=== PATIENT | female | born 1950 | race Caucasian/White ===

== ENCOUNTER → 2024-07-05 11:40 | Outpatient (REF) | payer MEDICARE, OTHER, SELFPAY | LOC: WDC 11:40 | PROVIDERS: ATTENDING PHYSICIAN Nurse Practitioner Family | DX: Z12.31 Encounter for screening mammogram for malignant neoplasm of breast (principal) | CPT/HCPCS: 77063; 77067 ==

== ENCOUNTER → 2024-07-20 09:15 | Outpatient (REF) | payer MEDICARE, OTHER, SELFPAY | LOC: RAD 09:15 | PROVIDERS: ATTENDING PHYSICIAN Nurse Practitioner Family | DX: Z13.820 Encounter for screening for osteoporosis (principal); Z78.0 Asymptomatic menopausal state | CPT/HCPCS: 77080 ==

== ENCOUNTER 2024-11-10 06:55 | Inpatient (IN) | payer MEDICARE, OTHER, SELFPAY ==
[2024-10-18 13:11] VITALS: BMI 30.8
[2024-10-18 14:17] LABS: Hematocrit 41.4 % (37.0-47.0); Hemoglobin 13.5 g/dL (12.0-16.0); Mean Corp Hgb Conc. 32.6 g/dL (33.0-37.0); Mean Corpuscular Hgb 29.6 pg (27.0-31.0); Mean Corpuscular Volume 90.8 fL (81.0-99.0); Mean Platelet Volume 10.2 fL (7.4-10.4); Platelet Count 281 10^3/uL (130-400); Red Blood Cell Count 4.56 10^6/uL (4.20-5.40); Red Cell Dist. Width 14.3 % (11.5-14.5); White Blood Cell Count 8.5 10^3/uL (4.8-10.8)
[2024-10-18 14:42] LABS: ALT (SGPT) 15 U/L (0-35); AST (SGOT) 23 U/L (14-36); Albumin 4.1 g/dl (3.5-5.0); Alkaline Phosphatase 68 U/L (38-126); Blood Urea Nitrogen 31 mg/dl (7-17); Calcium 9.6 mg/dl (8.4-10.2); Carbon Dioxide 28 mmol/L (22-30); Chloride 102 mmol/L (98-107); Estimated Creatinine Clearance 96 ml/min; Glucose 83 mg/dl (70-99); Potassium 4.1 mmol/L (3.5-5.1); Sodium 139 mmol/L (135-145); Total Bilirubin 0.6 mg/dl (0.2-1.3); Total Protein 6.1 g/dl (6.3-8.2); eGFR > 60.00
[2024-10-19 08:43] LABS: Glycohemoglobin (HgbA1c) 5.6 % (4.0-5.6)
--- NOTE | 2024-11-03 15:20 | PTCARENOTE ---
Patient anxious and tearful during nursing assessment. Patient is very concerned about inability to return home at discharge due to spouse's level of care. Patient's spouse is 'total care' his children are coming from out of town to take care of
him. Spouse has refused respite care.
Patient is requesting rehab for 2 weeks and has discussed with [facility] ([facility] [phone]).
Patient understands that rehab arrangements cannot be made ahead of time, rehab is based on insurance coverage and bed availability.
Patient stated she is willing to private pay if necessary.
Patient is aware that case management will meet with her once admitted to hospital.
[2024-11-10] VITALS (18 sets, daily range): BP systolic 88–138; BP diastolic 36–66; PULSE 78; BMI 30.8
[2024-11-10] MEDS: CELEBREX 200 MG PO (07:14)
[2024-11-10] MEDS: TYLENOL 650 MG PO ×3 (07:15→22:22)
[2024-11-10] MEDS: NORMOSOL-R/PLASMALYTE-A 1000 IV ×2 (07:15→14:16)
[2024-11-10 07:22] LABS: Glucose - Point of Care 97 mg/dl (70-99)
--- NOTE | 2024-11-10 07:52 | W.PN.UPDATE ---
Update Note
Progress Note Update
L knee OA s/p L TKA w/ Dr Beck 11/10/24
- s/p R TKA, 2017, w/ Dr Beck
DVT prophylaxis - ASA, b/l venous foot pumps
HTN - diet controlled - monitor BP
NIDDM, A1c 5.6 - monitor BS
- + SSI
- Diabetic carb controlled diet
- Resume Ozempic once d/c
- Would benefit from Cefadroxil upon d/c
HLD
Venous insufficiency
Colon and gallbladder polyps
Fatty liver disease
Cervical radiculopathy
DDD w/ stenosis
Melanoma
Anxiety
Depression
Osteopenia
Vitamin D deficiency
Obesity, BMI 30.8
[2024-11-10 09:49] LABS: Glucose - Point of Care 115 mg/dl (70-99)
[2024-11-10] MEDS: ROXICODONE 5 MG PO ×2 (12:01→18:16)
[2024-11-10 12:06] LABS: Glucose - Point of Care 148 mg/dl (70-99)
[2024-11-10] MEDS: TYLENOL PO ×2 (14:12)
[2024-11-10] MEDS: LEXAPRO 15 MG PO (14:30)
[2024-11-10] MEDS: COMPAZINE 5 MG PO (14:31)
[2024-11-10] MEDS: DILAUDID 0.5 MG IV (14:31)
[2024-11-10] MEDS: TORADOL 10 MG IV (15:18)
[2024-11-10] MEDS: NOVOLOG FLEXPEN-MODERATE RESISTANCE SC (15:18)
--- NOTE | 2024-11-10 15:58 | CM ---
Met with pt at bedside
Pt reports she lives with he in a 1 story home (55+); no steps to enter
Independent, active, drives
DME - rolling walker, single point cane, raised toilet seat, CPAP in home
HH - [facility] in past
SNF - has been in past - unable to recall
PCP - Myesha Ackerman
Pharm - [facility]
PT/OT recs SNF
May qualify for [facility] program. Has tele med appt in AM with PCP
Requesting referral be sent to [facility] - sent in [facility]. Adeline aware
Plan - anticipate SNF when medically ready
[2024-11-10 18:04] LABS: Glucose - Point of Care 213 mg/dl (70-99)
[2024-11-10] MEDS: ANCEF 5 IV (18:04)
[2024-11-10] MEDS: ASPIRIN 325 MG PO (18:04)
--- NOTE | 2024-11-10 18:38 | PTCARENOTE ---
Pt arrived to floor from PACU. AAOx3. Pt stating full sensation on LLE neurovascular assessment. Pt stating pain comfortably controlled. Assist x1 with rolling walker to BSC. Successful urination, returned to bed. SaO2 96% on room air. Regular
rhythm. Trace anasarca. Pedal pulses palpable. Bowel sounds present. No bowel movement observed. Pt state last bowel movement was this morning.
[2024-11-10] MEDS: NOVOLOG FLEXPEN-MODERATE RESISTANCE 3 UNITS SC (19:13)
[2024-11-10 22:16] LABS: Glucose - Point of Care 234 mg/dl (70-99)
[2024-11-10] MEDS: COLACE 100 MG PO (22:22)
[2024-11-10] MEDS: BACTROBAN 2% OINTMENT 1 APPLIC NASAL (22:22)
[2024-11-10] MEDS: SENOKOT 17.2 MG PO (22:22)
[2024-11-10] MEDS: LIPITOR 20 MG PO (22:34)
[2024-11-11] MEDS: TYLENOL PO (00:22)
[2024-11-11] MEDS: ANCEF 5 IV (00:22)
[2024-11-11] MEDS: TYLENOL 650 MG PO ×3 (03:17→12:37)
[2024-11-11 03:21] VITALS: BP 116/49
[2024-11-11 07:50] VITALS: BP 132/55
[2024-11-11] MEDS: COMPAZINE 5 MG IV (08:15)
[2024-11-11] MEDS: ROXICODONE 5 MG PO (08:16)
[2024-11-11] MEDS: CELEBREX 200 MG PO (08:17)
[2024-11-11] MEDS: VITAMIN D3 (cholecalciferol) 25 MCG PO (08:17)
[2024-11-11] MEDS: ASPIRIN 325 MG PO (08:17)
[2024-11-11] MEDS: LEXAPRO 15 MG PO (08:17)
[2024-11-11] MEDS: COLACE 100 MG PO (08:18)
[2024-11-11] MEDS: BACTROBAN 2% OINTMENT 1 APPLIC NASAL (08:18)
[2024-11-11] MEDS: SENOKOT 17.2 MG PO (08:18)
[2024-11-11 08:30] LABS: Glucose - Point of Care 134 mg/dl (70-99)
[2024-11-11] MEDS: NOVOLOG FLEXPEN-MODERATE RESISTANCE SC (08:31)
[2024-11-11 08:35] VITALS: BP 122/53; BP 131/58; BP 132/55; PULSE 58; PULSE 59; O2SAT 98
--- NOTE | 2024-11-11 10:11 | W.PN.ORTHO ---
Today's Communication / Plan
-
D/c possible for later today pending bed availability.
Assessment
.
Distal Motor Intact: Yes
Dressing:
Clean, dry and intact.
Assessment:
L knee OA s/p L TKA w/ Dr Beck 11/10/24
- s/p R TKA, 2017, w/ Dr Beck
DVT prophylaxis - ASA, b/l venous foot pumps
Post-op nausea - Compazine TID
- Add daily PPI
- Minimize opioids as able
HTN - diet controlled - BPs overall stable
NIDDM, A1c 5.6 - BS readings initially elevated 2* IV steroids in OR, surgical stress, and holding of home Ozempic 1 week prior to surgery
- BS readings improving, however, w/ SSI prn and diabetic carb controlled diet
- Resume Ozempic once d/c
- Would benefit from Cefadroxil upon d/c
HLD
Venous insufficiency
Colon and gallbladder polyps
Fatty liver disease
Cervical radiculopathy
DDD w/ stenosis
Melanoma
Anxiety
Depression
Osteopenia
Vitamin D deficiency
Obesity, BMI 30.8
Plan
.
Surgery / Date: L TKA w/ Dr Beck 11/10/24
DVT Prophylaxis: Aspirin
Activity:
Out of bed.
PT/OT
Discharge Plan: SNF
Subjective
.
.:
Patient resting comfortably in her chair this AM.
L knee pain better w/ mobility. Happy with her current pain meds.
Nausea without vomiting. Nausea, fortunately, not limiting patient.
Eager for possible d/c later today.
Vital Signs and Labs
.
Vital Signs and Labs:
Lab Results
10/18/24 12:31
10/18/24 12:31
Temp Pulse Resp BP Pulse Ox
98.2 F 58 18 132/55 98
11/11/24 07:50 11/11/24 07:50 11/11/24 07:50 11/11/24 07:50 11/11/24 07:50
Non-invasive Hgb result: 10.7
Physical Exam
-
HEENT: No pallor, cyanosis, or jaundice. Throat clear.
NECK: Supple. No JVD.
RESPIRATORY: Lungs clear to auscultation.
CVS: S1, S2 normal. RRR.�
ABDOMEN: Soft, non-tender. No distension. Obese.
EXTREMITIES: Strength equal, no calf pain with palpation/dorsiflexion. Calves soft.
COMMUNICATIONS CONTROLLER: AOx3. No focal deficits. 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
[2024-11-11] MEDS: NSS (PRESERVATIVE FREE) 10 ML IV (10:44)
[2024-11-11] MEDS: PROTONIX IV 40 MG IV (10:45)
--- NOTE | 2024-11-11 10:51 | CM ---
Addendum entered by Mary Herrmann 11/11/24 13:30:
Spoke with [place] - waiver approved and sent to [facility]
Spoke with Adeline at [facility] - can accept; confirmed receipt of waiver
Spoke with pt and family members in room - updated. Family to transport
Reviewed IMM
Plan - transfer to [facility]; family to transport
R - [phone]
F - [phone]
Original Note:
Spoke wit pt - completed telemed appt with PCP - [place] from [facility] updated. Will submit clinicals for waiver program when received
Called Adeline at the [facility] - LM requesting return call
Plan - snf when bed and waiver confirmed and medically ready
[2024-11-11 11:25] VITALS: BP 134/74
[2024-11-11 12:04] VITALS: BP 127/56; BP 133/62; PULSE 61; O2SAT 98
[2024-11-11 12:32] LABS: Glucose - Point of Care 212 mg/dl (70-99)
[2024-11-11] MEDS: NOVOLOG FLEXPEN-MODERATE RESISTANCE 3 UNITS SC (12:39)
--- NOTE | 2024-11-11 12:58 | W.DS.TRANS ---
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
-
Discharge Instructions:
Sleep Apnea Risk Intermediate
Discharge Diagnosis/Procedures L knee OA s/p L TKA w/ Dr Beck 11/10/24
Diet Diabetic, Carb Controlled
Activity As tolerated,With Walker
Driving Restrictions Not until seen by your Dr
Bathing Restrictions OK to Shower
Other Services PT,OT
Wound Care Dressing to be removed 1 week post-surgery.
Instructions:
Stand-Alone Forms: Total Hip/Knee Replacement D/C
Changes to Home Medications: Yes
Discharge Medications:
DC Medications w/original date entered in [facility]
atorvastatin 20 mg tablet 20 mg PO MOWEFR 06/24/17
escitalopram oxalate 10 mg tablet 15 mg PO DAILY 06/24/17
cholecalciferol (vitamin D3) 25 mcg (1,000 unit) tablet (Vitamin D3) 25 mcg PO DAILY 11/03/24
mupirocin 2 % topical ointment 1 applic topical BID 11/03/24
semaglutide 1 mg/dose (4 mg/3 mL) subcutaneous pen injector (Ozempic) 1 mg SC QWEEK 11/03/24
Saccharomyces boulardii 250 mg capsule (Florastor) 250 mg PO BID #14 caps 11/11/24
acetaminophen 325 mg tablet 1,300 mg (4 x 325 mg) PO Q8H #60 tabs 11/11/24
aspirin 325 mg tablet 325 mg PO DAILY #30 tabs 11/11/24
cefadroxil 500 mg capsule 500 mg PO BID #14 caps 11/11/24
celecoxib 200 mg capsule 200 mg PO DAILY #14 caps 11/11/24
docusate sodium 100 mg capsule 100 mg PO BID #30 caps 11/11/24
gabapentin 300 mg capsule 300 mg PO HS pain/sleep #10 caps 11/11/24
oxycodone 5 mg tablet 5 - 10 mg (1 - 2 x 5 mg) PO Q6H PRN moderate-severe pain #15 tabs 11/11/24
pantoprazole 40 mg tablet,delayed release (Protonix) 40 mg PO DAILY #30 tabs 11/11/24
prochlorperazine maleate 5 mg tablet 5 mg PO TID #30 tabs 11/11/24
sennosides 8.6 mg tablet (Kasandra-simone) 17.2 mg (2 x 8.6 mg) PO BID #30 tabs 11/11/24
Home Medication Changes
Saccharomyces boulardii 250 mg capsule (Florastor) 250 mg PO BID #14 caps 11/11/24
acetaminophen 325 mg tablet 1,300 mg (4 x 325 mg) PO Q8H #60 tabs 11/11/24
aspirin 325 mg tablet 325 mg PO DAILY #30 tabs 11/11/24
cefadroxil 500 mg capsule 500 mg PO BID #14 caps 11/11/24
celecoxib 200 mg capsule 200 mg PO DAILY #14 caps 11/11/24
docusate sodium 100 mg capsule 100 mg PO BID #30 caps 11/11/24
gabapentin 300 mg capsule 300 mg PO HS pain/sleep #10 caps 11/11/24
oxycodone 5 mg tablet 5 - 10 mg (1 - 2 x 5 mg) PO Q6H PRN moderate-severe pain #15 tabs 11/11/24
pantoprazole 40 mg tablet,delayed release (Protonix) 40 mg PO DAILY #30 tabs 11/11/24
prochlorperazine maleate 5 mg tablet 5 mg PO TID #30 tabs 11/11/24
sennosides 8.6 mg tablet (Kasandra-simone) 17.2 mg (2 x 8.6 mg) PO BID #30 tabs 11/11/24
Pending Results: No
[2024-11-11 19:53] LABS: Hepatitis C Antibody Negative (Negative)
== END 2024-11-11 14:50 | DRG 470 ==
LOC: 2 SOUTH 06:55
PROVIDERS: ADMITTING PHYSICIAN Orthopaedic Surgery; FAMILY PHYSICIAN Nurse Practitioner Family
PROC: 0SRD0J9 Replacement of Left Knee Joint with Synthetic Substitute, Cemented, Open Approach (ICD-10-PCS; 2024-11-10)
DX: M17.12 Unilateral primary osteoarthritis, left knee (principal); I10 Essential (primary) hypertension; E11.9 Type 2 diabetes mellitus without complications; E78.5 Hyperlipidemia, unspecified; E66.9 Obesity, unspecified; Z68.30 Body mass index [BMI] 30.0-30.9, adult
CPT/HCPCS: 36415; 73560; 80053; 82962; 83036; 85027; 86803; 87070; 93005; 97110; 97116; 97162; 97167; 97530; 97535; C1713; C1776

== ENCOUNTER → 2025-07-06 12:03 | Outpatient (REF) | payer MEDICARE, OTHER, SELFPAY | LOC: WDC 12:03 | PROVIDERS: ATTENDING PHYSICIAN Family Medicine | DX: Z12.31 Encounter for screening mammogram for malignant neoplasm of breast (principal) | CPT/HCPCS: 77063; 77067 ==